=== PATIENT | female | born 1960 | race Two or more races ===

== ENCOUNTER 2022-07-14 08:44 | Outpatient (CLI) | payer OTHER | END 2022-07-14 09:28 | disposition home or self-care (01) | LOC: LAB 08:44 | DX: E03.8 Other specified hypothyroidism (principal); R73.01 Impaired fasting glucose; I10 Essential (primary) hypertension ==

== ENCOUNTER 2022-11-23 07:07 | Outpatient (CLI) | payer OTHER | END 2022-11-23 07:10 | disposition home or self-care (01) | LOC: LAB 07:07 | DX: E03.8 Other specified hypothyroidism (principal) ==

== ENCOUNTER 2022-11-23 07:52 | Outpatient (CLI) | payer OTHER | END 2022-11-23 08:00 | disposition home or self-care (01) | LOC: SONOGRAMA 07:52 | DX: E04.2 Nontoxic multinodular goiter (principal); E03.8 Other specified hypothyroidism ==

== ENCOUNTER 2024-11-07 09:05 | Outpatient (CLI) | payer OTHER | END 2024-11-07 09:10 | disposition home or self-care (01) | LOC: SONOGRAMA 09:05 | DX: E04.2 Nontoxic multinodular goiter (principal) ==